=== PATIENT | female | born 1995 | race Caucasian/White ===

== ENCOUNTER 2016-12-21 07:35 | Emergency (ER) | payer SELFPAY ==
[~2016-12-21] VITALS: Ht 172.7 cm; Wt 110.0 kg
[2016-12-21 07:36] VITALS: BP 147/72
[2016-12-21 09:15] LABS: BLOOD UREA NITROGEN 11 mg/dL (7-18)
== END 2016-12-21 10:32 | disposition home or self-care (01) ==
LOC: ED 10:03
DX: N30.01 Acute cystitis with hematuria (principal); A59.01 Trichomonal vulvovaginitis
CPT/HCPCS: 36415; 80048; 81001; 82040; 84703; 85025; 87086; 99284